=== PATIENT | female | born 1940 | race Caucasian/White ===

== ENCOUNTER → 2023-09-08 07:47 | Outpatient (REF) | payer OTHER, SELFPAY | LOC: RAD 07:47 | PROVIDERS: ATTENDING PHYSICIAN Family Medicine | DX: R10.11 Right upper quadrant pain (principal) | CPT/HCPCS: 76700 ==

== ENCOUNTER → 2023-12-21 11:37 | Outpatient (REF) | payer OTHER, SELFPAY | LOC: WDC 11:37 | PROVIDERS: ATTENDING PHYSICIAN Family Medicine | DX: Z12.31 Encounter for screening mammogram for malignant neoplasm of breast (principal) | CPT/HCPCS: 77063; 77067 ==

== ENCOUNTER → 2024-03-01 06:33 | Day surgery (SDC) | payer OTHER, SELFPAY | LOC: GI 06:33 | PROVIDERS: ATTENDING PHYSICIAN Internal Medicine Gastroenterology | DX: Z12.11 Encounter for screening for malignant neoplasm of colon (principal); K57.30 Diverticulosis of large intestine without perforation or abscess without bleeding; K56.699 Other intestinal obstruction unspecified as to partial versus complete obstruction; Q43.8 Other specified congenital malformations of intestine; K64.8 Other hemorrhoids; K22.2 Esophageal obstruction; K31.89 Other diseases of stomach and duodenum; K44.9 Diaphragmatic hernia without obstruction or gangrene; R13.10 Dysphagia, unspecified; Z86.010 Personal history of colon polyps | CPT/HCPCS: 43239; G0105; 88305; 88342 ==

== ENCOUNTER → 2024-06-19 08:07 | Outpatient (REF) | payer OTHER, SELFPAY | LOC: RAD 08:07 | PROVIDERS: ATTENDING PHYSICIAN Nurse Practitioner Adult Health; FAMILY PHYSICIAN Family Medicine | DX: R05.2 Subacute cough (principal) | CPT/HCPCS: 71250 ==

== ENCOUNTER → 2024-06-21 13:29 | Outpatient (REF) | payer OTHER, SELFPAY | LOC: DHSLP 13:29 | PROVIDERS: ATTENDING PHYSICIAN Internal Medicine Critical Care Medicine; FAMILY PHYSICIAN Family Medicine | DX: G47.33 Obstructive sleep apnea (adult) (pediatric) (principal) | CPT/HCPCS: 95800 ==

== ENCOUNTER 2025-03-07 10:14 | Outpatient (RCR) | payer OTHER, SELFPAY | END 2025-03-07 23:59 | disposition home or self-care (01) | LOC: RPT 10:14 | PROVIDERS: ATTENDING PHYSICIAN Specialist; FAMILY PHYSICIAN Family Medicine | DX: S42.291S Other displaced fracture of upper end of right humerus, sequela (principal); M25.511 Pain in right shoulder; Z73.6 Limitation of activities due to disability | CPT/HCPCS: 97110; 97162 ==

== ENCOUNTER → 2025-07-04 14:39 | Outpatient (REF) | payer OTHER, SELFPAY | LOC: WDC 14:39 | PROVIDERS: ATTENDING PHYSICIAN Family Medicine | DX: M85.88 Other specified disorders of bone density and structure, other site (principal); Z12.31 Encounter for screening mammogram for malignant neoplasm of breast | CPT/HCPCS: 77063; 77067 ==